=== PATIENT | male | born 1955 | race Caucasian/White ===

== ENCOUNTER 2019-04-19 06:28 | Outpatient (CLI) | payer MEDICAID | END 2019-04-19 06:29 | disposition critical access hospital (66) | LOC: EMS 06:28 | PROVIDERS: ATTEND Surgery | DX: M54.5 Low back pain (principal); M79.604 Pain in right leg | CPT/HCPCS: A0425; A0427; A0999 ==

== ENCOUNTER 2019-04-19 06:51 | Emergency (ER) | payer MEDICAID ==
--- NOTE | 2019-04-19 07:07 | ED Physician Documentation ---
History of Present Illness - Stated complaint Stated Complaint: BACK PX - Chief complaint Chief Complaint: Back Pain - History obtained from History obtained from: Patient - Additonal information Additional information: Patient is a previously healthy 63-year-old male presenting with right-sided back pain over the past several days. Patient denies any particular heavy lifting, inciting incident, fall, or trauma. Over the past 3 to 4 days patient has had worsening right lower back spasm causing pain that radiates through his bottom into his right leg and ending at about the right thigh. Patient reports that he has been laying in bed for the past few days and is only movements have been to roll to the side of the bed to urinate. Patient's last bowel movement was several days ago. Patient denies other back pain, abdominal pain, changes in urination, or other incontinence. Patient also denies sensation changes to the groin or legs. Patient reports that he has appropriate range of motion and strength in his legs, although these are limited by discomfort. No other improving or worsening factors noted. Review of Systems GI: denies: Abdominal Pain : denies: Incontinent Musculoskeletal: reports: Back pain PD PAST MEDICAL HISTORY - Past Medical History Past Medical History: No - Past Surgical History Past Surgical History: No - Present Medications Home Medications: Ambulatory Orders Medication Instructions Recorded Confirmed Diazepam [Valium] 2 mg PO Q6HR #10 tablet 04/19/19 Hydrocodone/Acetaminophen 1 - 2 each PO Q6H PRN #14 tablet 04/19/19 [Hydrocodon-Acetaminophen 5-325] - Allergies Allergies/Adverse Reactions: Allergies Allergy/AdvReac Type Severity Reaction Status Date / Time No Known Drug Allergies Allergy Verified 04/19/19 06:57 PD ED PE NORMAL - Vitals Vital signs reviewed: Yes - General General: Alert and oriented X 3, No acute distress, Well developed/nourished - HEENT HEENT: Atraumatic, Moist mucous membranes - Cardiac Cardiac: RRR, No murmur - Respiratory Respiratory: No respiratory distress, Clear bilaterally - Abdomen Abdomen: Soft, Non tender, Non distended - Back Back: No spinal TTP, Other (Mild right lumbar paraspinal muscle spasm with mode rate tenderness with palpation.) - Derm Derm: Normal color, Warm and dry, No rash - Extremities Extremities: No deformity, No tenderness to palpate, Normal ROM s pain, Other (Mildly positive right straight leg test, somewhat limited by discomfort) - Neuro Neuro: Alert and oriented X 3, No motor deficit, No sensory deficit - Psych Psych: Normal mood, Normal affect Results - Vitals Vitals: Vital Signs - 24 hr 04/19/19 06:55 Temperature 36.8 C Heart Rate 67 Respiratory 16 Rate Blood Pressure 143/91 H O2 Saturation 96 Oxygen O2 Source Room air PD MEDICAL DECISION MAKING - ED course Complexity details: considered differential, d/w patient ED course: Most concerning for muscle spasm and musculoskeletal injury. Feel that patient's mobility unfortunately worsened his underlying disease process. Patient did not have significant trauma to raise suspicion for vertebral injury and no midline tenderness palpated on exam. No step-offs or other concerns found. Additionally, have lower suspicion for epidural abscess, cauda equina, or other spinal cord issue again given lack of trauma, as well as no new neurological deficits, incontinence, saddle anesthesia or other abnormalities found on exam. No overlying skin changes to indicate abscess, cellulitis, shingles or other rash. Patient does have radiation of discomfort into his right leg sciatica.Patient denies any intra-abdominal complaints and have lower suspicion for such. Patient had significant improvement of his discomfort with the Morphine 8 mg given to him by EMS. Discussed adding muscle relaxant and steroid to this combination. Patient also requesting fluid as he is concerned about dehydration, although no significant dehydration found on exam. Fluid will also be given. Patient tolerated medications well and is much more comfortable. He is able to ambulate on his own throughout the ED.Patient's partner to come to the ED to pick him up and will plan to send him home with prescriptions for pain and muscle aches and medications as well. Also discussed other supportive cares, massage, stretching, return precautions, and follow-up. Patient voiced understanding and is comfortable with discharge plan. Departure - Departure Disposition: 01 Home, Self Care Clinical Impression: Muscle spasm Back pain Qualifiers: Back pain location: low back pain Chronicity: acute Back pain laterality: right Sciatica presence: with sciatica Sciatica laterality: sciatica of right side Qualified Code(s): M54.41 - Lumbago with sciatica, right side Condition: Good Instructions: ED Spasm Muscle, ED Sciatica Follow-Up: your,doctor [Other] - Within 3 Days Prescriptions: Diazepam [Valium] 2 mg PO Q6HR #10 tablet Hydrocodone/Acetaminophen [Hydrocodon-Acetaminophen 5-325] 1 - 2 each PO Q6H PRN #14 tablet PRN Reason: pain Comments: Recommend stretching, heat application, massage, and follow-up with your primary care physician in next 2 to 3 days. May use [place] as prescribed for pain control, as well as Valium as prescribed for muscle relaxant. Do not combine these medications with driving, alcohol, or other drugs. If taking [place] regularly, recommend use of stool softener or laxative to avoid constipation. Recommend taking all medications with small amount of food to avoid upset stomach. If not taking [place], may use ibuprofen/Tylenol. Return to ED if experience worsening symptoms or other concerns.
[2019-04-19] MEDS ORDERED: diazePAM INJ 5 MG/ML SYRINGE IVP STA (07:17)
[2019-04-19] MEDS ORDERED: methylPREDNISolone SUCCINATE 125 MG/2 ML VIAL IVP STA (07:17)
[2019-04-19] MEDS ORDERED: SODIUM CHLORIDE 0.9% 1,000 ML IV ONE (07:18)
[2019-04-19 08:23] VITALS: BP 132/64
== END 2019-04-19 08:29 | disposition home or self-care (01) ==
LOC: EDUNIT# → ED 06:51
DX: M54.41 Lumbago with sciatica, right side (principal); M62.830 Muscle spasm of back
CPT/HCPCS: 96374; 99283

== ENCOUNTER 2020-01-04 05:50 | Outpatient (CLI) | payer MEDICARE | END 2020-01-04 05:51 | disposition critical access hospital (66) | LOC: EMS 05:50 | PROVIDERS: ATTEND Surgery | DX: R25.2 Cramp and spasm (principal) | CPT/HCPCS: A0425; A0429 ==

== ENCOUNTER 2020-01-04 06:12 | Emergency (ER) | payer MEDICAID, MEDICARE ==
[2020-01-04] MEDS ORDERED: KETOROLAC 60 MG/2 ML VIAL IM STA (06:42)
[2020-01-04] MEDS ORDERED: HYDROmorphone 1 MG/ML SYRINGE IVP STA (06:42)
[2020-01-04] MEDS ORDERED: HYDROmorphone 2 MG/ML VIAL IM STA (06:44)
--- NOTE | 2020-01-04 06:45 | ED Physician Documentation ---
History of Present Illness - Stated complaint Stated Complaint: BACK PX - Chief complaint Chief Complaint: Back Pain - History obtained from History obtained from: Patient - Additonal information Additional information: Patient comes emergency department complaining of low back spasms that started last night. Patient states that he has had a cough and is at the end of upper respiratory infection. He states that in the latter part of the illness, his cough seems to have intensified and that this is strained his back. Patient has a history of distant low back issues, but states that on occasion, when he has a cough, he gets back spasms. He states that he turned over in bed last night and that his low back "locked up" and a painful spasm. Patient states that once this relaxed, he decided that he would come in for treatment early, as last time, he waited 3 days and by the end, could not move at all. Patient states that he needed to walk downstairs to get his keys, but that even the movement of walking would make him spasm up with every step, And that it took him an hour to get down the stairs. PatientDenies any numbness or tingling in his legs. No weakness. No loss of bowel or bladder function. Patient states that as long as he lies still he really does not have any pain, as the spasm does ease up. However, he re-spasms with any flexion of the hips or certain other movemen ts.Patient denies any fevers or chills. No urinary symptoms. No abdominal pain or vomiting. Patient is otherwise feeling okay.He states he is otherwise very healthy. Review of Systems Ten Systems: 10 systems reviewed and negative Constitutional: reports: Reviewed and negative Eyes: reports: Reviewed and negative Ears: reports: Reviewed and negative Nose: reports: Reviewed and negative Throat: reports: Reviewed and negative Cardiac: reports: Reviewed and negative Respiratory: reports: Reviewed and negative GI: reports: Reviewed and negative : reports: Reviewed and negative Skin: reports: Reviewed and negative Musculoskeletal: reports: Back pain Neurologic: reports: Reviewed and negative Psychiatric: reports: Reviewed and negative Endocrine: reports: Reviewed and negative Immunocompromised: reports: Reviewed and negative PD PAST MEDICAL HISTORY - Past Surgical History Past Surgical History: No - Present Medications Home Medications: Ambulatory Orders Medication Instructions Recorded Confirmed Methocarbamol [Robaxin-750] 750 mg PO BID 7 Days #14 tablet 03/02/20 Oxycodone HCl/Acetaminophen 1 - 2 each PO Q4HR #14 tablet 01/04/20 [Oxycodone-Acetaminophen 5-325] - Allergies Allergies/Adverse Reactions: Allergies Allergy/AdvReac Type Severity Reaction Status Date / Time No Known Drug Allergies Allergy Verified 01/04/20 06:20 PD ED PE NORMAL - Vitals Vital signs reviewed: Yes - General General: Alert and oriented X 3, No acute distress - HEENT HEENT: PERRL - Neck Neck: Supple, no meningeal sign - Cardiac Cardiac: RRR, No murmur - Respiratory Respiratory: Clear bilaterally - Abdomen Abdomen: Soft, Non tender, Non distended - Back Back: No CVA TTP, No spinal TTP, Other (Mild bilateral lumbar paraspinal muscular tenderness) - Derm Derm: Warm and dry - Extremities Extremities: No deformity, No tenderness to palpate - Neuro Neuro: Alert and oriented X 3, oracle forms developer 2-12 intact, No motor deficit, No sensory deficit, Normal speech - Psych Psych: Normal mood, Normal affect Results - Vitals Vitals: Vital Signs - 24 hr 01/04/20 06:12 Temperature 37.1 C Heart Rate 82 Respiratory 15 Rate Blood Pressure 166/86 H O2 Saturation 99 Oxygen O2 Source Room air PD MEDICAL DECISION MAKING - ED course Complexity details: reviewed old records, re-evaluated patient, considered differential, d/w patient ED course: The patient was currently comfortable in the emergency department, but given that he was having such spasm, I feel he should be treated symptomatically for his pain. Patient was given 2 mg of Dilaudid IM and 60 mg of Toradol IM.He was found to be feeling better after this. I did not find evidence of a more emergent cause of back pain and I did not find evidence of any emergent complications. The patient's pain seemed to be very clearly mechanical and very much confined to movement only. I did not feel emergent imaging was indicated at this time. I did discuss home management of symptoms with him. He states he is home by himself right now, but his family will be home tomorrow.I will prescribe him Percocet and Robaxin to help relax the muscles. He states his partner is a massage therapist who can work on his back when she returns tomorrow. Departure - Departure Disposition: 01 Home, Self Care Clinical Impression: Muscle spasm Back pain Qualifiers: Back pain location: low back pain Chronicity: acute Back pain laterality: bilateral Sciatica presence: without sciatica Qualified Code(s): M54.5 - Low back pain Condition: Good Instructions: ED Spasm Back No Trauma Prescriptions: Oxycodone HCl/Acetaminophen [Oxycodone-Acetaminophen 5-325] 1 - 2 each PO Q4HR #14 tablet Methocarbamol [Robaxin-750] 750 mg PO BID 7 Days #14 tablet
[2020-01-04 07:30] VITALS: BP 165/103
== END 2020-01-04 08:32 | disposition home or self-care (01) ==
LOC: EDUNIT# → ED 06:12
DX: M62.830 Muscle spasm of back (principal); M54.5 Low back pain; R05 Cough
CPT/HCPCS: 96372; 99283; 99284; J1170

== ENCOUNTER 2020-06-17 08:14 | Outpatient (CLI) | payer MEDICARE ==
--- NOTE | 2020-06-17 08:58 | XRAY Report ---
PROCEDURE: Knee 3 View RT INDICATIONS: PAIN IN RT KNEE TECHNIQUE: 3 views of the right knee(s) were acquired. COMPARISON: None. FINDINGS: Bones: No fractures or dislocations, but there is near severe degenerative medial compartment knee j oint osteoarthritis where near [id number] articulation can be seen. Moderate to moderately severe l ateral facet patellofemoral joint osteoarthritis is seen. No suspicious bony lesions. Soft tissues: No joint effusion. No suspicious soft tissue calcifications. IMPRESSION: Right knee joint osteoarthritis is moderately severe overall, most pronounced at the med ial compartment but also relatively prominent at the patellofemoral joint. Reviewed by: Tam Freire MD on 06/17/2020 8:56 AM PDT Approved by: Tam Freire MD on 06/17/2020 8:56 AM PDT Station ID: [id number]
== END 2020-06-17 08:15 | disposition home or self-care (01) ==
LOC: DI.S 08:14
PROVIDERS: ATTEND Nurse Practitioner Family
DX: M17.11 Unilateral primary osteoarthritis, right knee (principal)

== ENCOUNTER 2021-01-06 19:42 | Emergency (ER) | payer MEDICAID, MEDICARE ==
[2021-01-06] MEDS ORDERED: KETOROLAC 60 MG/2 ML VIAL IM STA (19:56)
[2021-01-06] MEDS ORDERED: HYDROmorphone 1 MG/ML CARPUJECT IM STA (19:56)
--- NOTE | 2021-01-06 19:58 | ED Physician Documentation ---
PD HPI BACK PAIN - Stated complaint Stated Complaint: BACK PX - Chief complaint Chief Complaint: Back Pain - History obtained from History obtained from: Patient - Additional information Additional information: This is a 65-year-old gentleman who gets back problems about once a year. He states that similar to prior episodes his back is locked. He states that does not hurt too bad if he does not move, but with any changes in position or motion it becomes severe. The pain is in the left lower lumbar area. Nonradiating. There is no associated fevers, weight loss, saddle anesthesia, weakness, n umbness, or tingling in the extremities. No incontinence. Review of Systems Constitutional: denies: Fever, Chills Nose: reports: Reviewed and negative Throat: reports: Reviewed and negative Cardiac: reports: Reviewed and negative Respiratory: reports: Reviewed and negative PD PAST MEDICAL HISTORY - Past Surgical History Past Surgical History: No - Present Medications Home Medications: Ambulatory Orders Medication Instructions Recorded Confirmed Methocarbamol [Robaxin-750] 750 mg PO BID 7 Days #14 tablet 01/04/20 Oxycodone HCl/Acetaminophen 1 - 2 each PO Q4HR #14 tablet 01/04/20 [Oxycodone-Acetaminophen 5-325] HYDROcod/ACETAM 5/325 [[place] 5/325] 1 - 2 tab PO Q6H PRN #15 tablet 01/06/21 Lidocaine Patch 5% [Lidoderm Patch] 1 patch TOP DAILY PRN #10 patch 01/06/21 diazePAM [Valium] 5 - 10 mg PO TID PRN #15 tablet 01/06/21 - Allergies Allergies/Adverse Reactions: Allergies Allergy/AdvReac Type Severity Reaction Status Date / Time No Known Drug Allergies Allergy Verified 01/06/21 19:58 PD ED PE NORMAL - Vitals Vital signs reviewed: Yes - General General: Alert and oriented X 3, Other (He is comfortable when he is still, but any motion or change in position makes him wince.) - HEENT HEENT: PERRL, EOMI - Neck Neck: Supple, no meningeal sign, No bony TTP - Abdomen Abdomen: Normal bowel sounds, Soft, Non tender - Back Back: No spinal TTP, Other (The patient has equal and normal Achilles and patellar reflexes bilaterally. Normal sensation in all areas of the legs. Patient denies saddle anesthesia. Normal strength in flexion-extension at the ankles, knees, and flexion of the hips.) - Derm Derm: Normal color, Warm and dry - Extremities Extremities: No edema, No calf tenderness / cord - Neuro Neuro: Alert and oriented X 3, Normal speech Results - Vitals Vitals: Vital Signs - 24 hr 01/06/21 19:53 Temperature 36.6 C Heart Rate 66 Respiratory 18 Rate Blood Pressure 149/82 H O2 Saturation 98 Oxygen O2 Source Room air PD MEDICAL DECISION MAKING - ED course ED course: 65-year-old gentleman with what sounds by history and physical like a recurrent lumbar spasm. He was treated as he has been in the past with 2 mg of Dilaudid and 60 mg of Toradol IM with excellent relief. Departure - Departure Disposition: 01 Home, Self Care Clinical Impression: Muscle spasm Back pain Qualifiers: Back pain location: low back pain Chronicity: acute Back pain laterality: left Sciatica presence: without sciatica Qualified Code(s): M54.5 - Low back pain Condition: Good Record reviewed to determine appropriate education?: Yes Instructions: ED Neck Back Pain General Prescriptions: Lidocaine Patch 5% [Lidoderm Patch] 1 patch TOP DAILY PRN #10 patch PRN Reason: pain HYDROcod/ACETAM 5/325 [[place] 5/325] 1 - 2 tab PO Q6H PRN #15 tablet PRN Reason: Pain diazePAM [Valium] 5 - 10 mg PO TID PRN #15 tablet PRN Reason: Spasms Comments: Call your doctor to arrange a follow-up appointment, make the next available appointment. In the interim, return anytime if worse or if new symptoms develop. Do not drink or drive while taking narcotic pain medication. Note that many narcotic pain relievers also contain Tylenol/acetaminophen. Please ensure that your total dose of acetaminophen from all sources does not exceed 3 g (3000 mg) per day. You may get constipated while on this medication. Take a stool softener such as Colace twice a day while you are on it. Also add an [id number] laxative such as senna or MiraLAX on any day that you do not have a bowel movement. If you received a narcotic pain medication or sedative while in the emergency department, do not drive for the next 24 hours.
[2021-01-06] MEDS ORDERED: LIDOCAINE PATCH 5% TOP STA (20:40)
[2021-01-06 20:53] VITALS: BP 158/97
== END 2021-01-06 20:55 | disposition home or self-care (01) ==
LOC: ED 19:42
DX: M62.830 Muscle spasm of back (principal)
CPT/HCPCS: 96372; 99283; 99284; A9270; J1170